=== PATIENT | male | born 1950 | race Caucasian/White ===

== ENCOUNTER 2018-03-19 08:31 | Day surgery (SDC) | payer OTHER ==
[~2018-03-19] VITALS: Ht 177.8 cm; Wt 103.2 kg
[~2018-03-19 08:31] MED LIST: ATOR40TA PO; CHOL2000 PO; CLOP75TA15 PO; CYCL-1 PO; FERGLU300T PO; HYDR-4353 PO; LIDOcaine 1% (10mg/ml)w/preservative injection 20ml MDV SQ ONE; LISI40TA4 PO; METF500T7 PO; MULT-1141 PO
[2018-03-19 08:53] VITALS: BP 131/74
[2018-03-19] MEDS ORDERED: FERR325T28 PO ×2 (09:02→09:03)
[2018-03-19] MEDS ORDERED: CHOL400T32 PO (09:02)
[2018-03-19] MEDS ORDERED: ALBU18HF2 INH (09:02)
[2018-03-19] MEDS ORDERED: HYDR-4353 PO (09:02)
[2018-03-19] MEDS ORDERED: ALPR-624 PO (09:02)
[2018-03-19] MEDS ORDERED: [UNRECOGNIZED DRUG - OTHER] IVP (09:02)
[2018-03-19] MEDS ORDERED: FURO-150 PO (09:02)
[2018-03-19] MEDS ORDERED: IBUPROFEN PO (09:02)
[2018-03-19 09:50] VITALS: BP 140/75
== END 2018-03-19 09:50 | disposition home or self-care (01) ==
LOC: SSTAY O 08:31
PROVIDERS: ATTEND Radiology Vascular & Interventional Radiology
DX: J90 Pleural effusion, not elsewhere classified (principal); J44.9 Chronic obstructive pulmonary disease, unspecified; E11.9 Type 2 diabetes mellitus without complications; I11.0 Hypertensive heart disease with heart failure; I50.9 Heart failure, unspecified; F17.210 Nicotine dependence, cigarettes, uncomplicated; E78.5 Hyperlipidemia, unspecified; Z92.21 Personal history of antineoplastic chemotherapy; Z92.3 Personal history of irradiation; Z85.828 Personal history of other malignant neoplasm of skin; Z72.89 Other problems related to lifestyle; Z85.831 Personal history of malignant neoplasm of soft tissue; Z85.46 Personal history of malignant neoplasm of prostate; Z85.118 Personal history of other malignant neoplasm of bronchus and lung; Z90.79 Acquired absence of other genital organ(s); Z91.041 Radiographic dye allergy status; Z79.1 Long term (current) use of non-steroidal anti-inflammatories (NSAID); Z79.891 Long term (current) use of opiate analgesic; Z79.84 Long term (current) use of oral hypoglycemic drugs; Z86.73 Personal history of transient ischemic attack (TIA), and cerebral infarction without residual deficits; Z98.890 Other specified postprocedural states; Z79.899 Other long term (current) drug therapy
CPT/HCPCS: 76604; J2001